=== PATIENT | male | born 1950 | race Caucasian/White ===

== ENCOUNTER 2023-02-05 07:58 | Outpatient (CLI) | payer MEDICARE | END 2023-02-05 07:59 | disposition home or self-care (01) | LOC: CSHCT 07:58 | PROVIDERS: ATTEND Student in an Organized Health Care Education/Training Program | DX: E04.9 Nontoxic goiter, unspecified (principal); E04.2 Nontoxic multinodular goiter | CPT/HCPCS: 70491; 82565 ==

== ENCOUNTER 2025-04-06 08:23 | Outpatient (CLI) | payer MEDICARE | END 2025-04-06 08:24 | disposition home or self-care (01) | LOC: CSHCT 08:23 | PROVIDERS: ATTEND Family Medicine | DX: R91.8 Other nonspecific abnormal finding of lung field (principal); J98.4 Other disorders of lung; R91.1 Solitary pulmonary nodule | CPT/HCPCS: 71250 ==